=== PATIENT | male | born 1990 | race Caucasian/White ===

== ENCOUNTER 2021-09-21 18:38 | Emergency (ER) | payer SELFPAY ==
[~2021-09-21] VITALS: Ht 180.3 cm; Wt 59.5 kg
[2021-09-21 18:48] VITALS: BP 127/86
[2021-09-21] MEDS ORDERED: BACITRACIN TOPICAL OINT PACKET. TP ONE (19:45)
--- NOTE | 2021-09-21 19:58 | PHYS DOC ---
Past Medical History Past Surgical History: No Surgical History General Adult EDM: Chief Complaint: LACERATION/AVULSION HPI: HPI: Patient is a 31-year-old male presents to the emergency department complaining of laceration to his right lower leg just below his knee, patient reports he was sliding across a water slip and slide in a yard when his leg struck one of the hold down metal stake's causing a laceration. Patient reports this incident happened approximately an hour prior to arrival to the emergency department, rep orts his last tetanus immunization was less than 5 years ago. Did not take any pain medication or tried any nonpharmacological pain relief methods prior to arrival to the ER, reports a 4 out of 10 pain. Patient denies numbness or tingling to his extremities. Denies other physical complaints or physical concerns. Review of Systems: Review of Systems: 14 body systems of review of systems have been reviewed. See HPI for pertinent positives and negative responses, otherwise all other systems are negative, nonpertinent or noncontributory. Constitutional: Negative except as outlined in HPI above. Skin: Negative except as outlined in HPI above. Eyes: Negative except as outlined in HPI above. HENT: Negative except as outlined in HPI above. Respiratory: Negative except as outlined in HPI above. Cardiovascular: Negative except as outlined in HPI above. GI: Negative except as outlined in HPI above. : Negative except as outlined in HPI above. Musculoskeletal: Negative except as outlined in HPI above. Integument: Negative except as outlined in HPI above. Neurologic: Negative except as outlined in HPI above. Endocrine: Negative except as outlined in HPI above. Lymphatic: Negative except as outlined in HPI above. Psychiatric: Negative except as outlined in HPI above. Heart Score: C/O Chest Pain: No Risk Factors: Risk Factors: DM, Current or recent (<one month) smoker, HTN, HLP, family history of CAD, obesity. Risk Scores: Score 0 - 3: 2.5% MACE over next 6 weeks - Discharge Home Score 4 - 6: 20.3% MACE over next 6 weeks - Admit for Clinical Observation Score 7 - 10: 72.7% MACE over next 6 weeks - Early Invasive Strategies Current Medications: Current Medications Medications (Trade) Dose Ordered Sig/Yesy Start Time Stop Time Status Last Admin Dose Admin Bacitracin (Bacitracin Zinc Oint Pkt) 1 pkt STK-MED ONCE 09/21/21 19:45 09/21/21 19:45 DC Allergies: Allergies: Allergies Coded Allergies Type Severity Reaction Last Updated Verified No Known Drug Allergies 09/21/21 No Physical Exam: PE: Constitutional: Well developed, well nourished, no acute distress, non-toxic appearance. 31-year-old male in no apparent distress. HENT: Normocephalic, atraumatic. Eyes: Conjunctiva normal, no discharge. Neck: Normal range of motion, no stridor. Cardiovascular: No cyanosis appreciated, distal cap refill less than 2 seconds. Lungs & Thorax: Patient is in no respiratory distress, no audible adventitious lung sounds appreciated. Abdomen: Nontender, no abnormalities noted. Skin: Warm, dry, no erythema, no rash. See extremity note for focused skin examination. Back: No tenderness, no deformities. Extremities: No tenderness, no cyanosis, no clubbing, ROM intact, no edema. Except for right lower extremity, just medial to centerline just proximal to the knee there is a 10 cm laceration with a 2 cm section full skin thickness and an additional 3.5 cm laceration just distal along the same laceration that is full skin thickness otherwise laceration is superficial, there is no bleeding. Distal cap refill less than 2 seconds bilateral lower extremities, 2+ dorsalis pedis pulses bilateral lower extremities. Neurologic: Alert and oriented X 3, normal motor function, normal sensory function, no focal deficits noted. Psychologic: Affect normal, judgement normal, mood normal. Current Patient Data: Vital Signs: Vital Signs Date Time Temp Pulse Resp B/P (MAP) Pulse Ox O2 Delivery O2 Flow Rate FiO2 09/21/21 18:48 98.5 91 18 127/86 (100) 98 Room Air 98.5 EKG: EKG: [] Radiology/Procedures: Radiology/Procedures: [] Course & Med Decision Making: Course & Med Decision Making Pertinent Labs and Imaging studies reviewed. (See chart for details) 31-year-old male, vital signs reviewed, presents to the emergency department concerning laceration to right lower leg. Patient reports incident approximately 1 hour prior to arrival, physical presentation and examination consistent with patient's explanation of events. Please see laceration repair note. Discussed with patient sutured wound care, sutures out in 7 to 10 days, follow- up with primary care for wound evaluation, return to ER precautions and concerns were reviewed, patient gave verbal understanding of and is amenable to ED discharge planning. Discussed with the patient all findings and diagnostic testing as well as the need to follow-up with their primary care provider for further evaluation and treatment or return to the ED if any new or worsening symptoms. Strict return precautions were also discussed at length, the patient voiced understanding and agreement with the discharge planning. The patient was nontoxic in appearance, in no apparent distress, and hemodynamically stable at the time of disposition. Dragon Disclaimer: Dragon Disclaimer: This electronic medical record was generated, in whole or in part, using a voice recognition dictation system. Laceration Repair Lac Repair Indication: Laceration right lower leg Time: 1929 Confirmed: Patient, procedure, side, and site correct. Consent: Patient, has given verbal consent. Description/repair Procedure: The patient was placed in the appropriate position and anesthesia around the laceration was achieved with 5 cc 2% lidocaine without epinephrine. The area was then cleansed with copious amounts of normal saline, then scrubbed with chlorhexidine scrub. The laceration was explored for foreign bodies, there were no foreign bodies present. The lacerations were closed with 3 interrupted sutures using 4-0 nylon on the superior laceration, 4 interrupted sutures using 4-0 nylon on the distal laceration. The wound area was then dressed with dressed with bacitracin and bandage per ED nursing staff.. Complexity: Single layer. Post procedure exam: Circulation, motor, sensory examination intact, bleeding controlled. Total repaired wound length: 5.5 cm. Other Items: There were no other items. The patient tolerated the procedure well. Complications: There were no complications. Performed by: Matthias Garcia, PER DIEM PHYSICAL THERAPIST-C Supervision: Dr. Marcial was present for consult regarding the critical aspects of the procedure including closure and post procedure exam. Total time: 25 minutes. Departure Departure Impression: Primary Impression: Laceration of right lower extremity Qualified Codes: S81.811A - Laceration without foreign body, right lower leg, initial encounter Disposition: HOME / SELF CARE / HOMELESS Condition: GOOD Referrals: NO PCP (PCP) Patient Instructions: Laceration Care, Adult Additional Instructions: You were seen today in the emergency department for a laceration to your right lower leg. This was repaired with 7 sutures that will require removal in 7 to 10 days, the sutures will not dissolve by themselves. As we discussed, please perform daily cleansing with mild soap and water, please do not cleanse with alcohol, try to avoid hydrogen peroxide, mild soap and water will be sufficient, apply an antibiotic ointment such as Neosporin or Polysporin over the laceration site and dress with a loose bandage until sutures are removed in 7 to 10 days. Signs and symptoms of infectious process would include extreme pain and swelling, right red skin color with streaking towards your upper thigh, drainage of colors green-black or milky white. Otherwise normal drainage does include a light yellow to light red to light pink. Please return to the emergency department for signs of infectious process, or other concerns thank you for visiting our Emergency Department. It was a pleasure taking care of you today in the emergency department and we appreciate you trusting us with your care. If any additional problems come up don't hesitate to return to visit us. Please follow up with your primary care provider so they can plan additional care if needed and know about the problem that you had. If symptoms worsen come back to the Emergency Department. Any concerning symptoms that start such as chest pain, shortness of air, weakness or numbness on one side of the body, running high fevers or any other concerning symptoms return to the ER. MATTHIAS CHILDRESS APRN September 21, 2021 19:58
== END 2021-09-21 20:05 | disposition home or self-care (01) ==
LOC: ER 18:38
DX: S81.811A Laceration without foreign body, right lower leg, initial encounter (principal); Y28.8XXA Contact with other sharp object, undetermined intent, initial encounter; Y93.89 Activity, other specified; Y92.096 Garden or yard of other non-institutional residence as the place of occurrence of the external cause; Y99.8 Other external cause status
CPT/HCPCS: 12002; 99282